=== PATIENT | female | born 1950 | race Caucasian/White ===

== ENCOUNTER → 2017-12-11 | Emergency (ER) | payer OTHER ==
[~2017-12-11] VITALS: Ht 160 cm; Wt 88.9 kg
[~2017-12-11] MED LIST: CEFADROXIL500 MG PO; CIPRO500 MG PO; COZAAR25 MG; FLAGYL500MG PO; INTESTINEX680 M1 PO; JANUMET 50-501 UDTAB; NABUMETONE750 MG PO; NORVASC5 MG; SYNTHROID137 MCG; TOPROL XL200 MG; ULTRAM50 MG PO
== END | disposition home or self-care (01) ==
LOC: ER 12:34
DX: L05.01 Pilonidal cyst with abscess (principal)

== ENCOUNTER 2018-01-03 19:16 | Emergency (ER) | payer OTHER ==
[~2018-01-03] VITALS: Ht 160 cm; Wt 89.4 kg
[2018-01-03] MEDS ORDERED: JANUMET 50-5001 EACH (19:41)
[2018-01-03] MEDS ORDERED: CYMBALTA60 MG (19:42)
[2018-01-03] MEDS ORDERED: CLONAZEPAM2 M1 (19:43)
== END 2018-01-04 00:41 | disposition home or self-care (01) ==
LOC: ER 19:16
DX: J02.9 Acute pharyngitis, unspecified (principal); J11.1 Influenza due to unidentified influenza virus with other respiratory manifestations

== ENCOUNTER 2023-09-29 22:35 | Emergency (ER) | payer OTHER ==
[~2023-09-29] VITALS: Ht 160 cm; Wt 79.4 kg
[~2023-09-29 22:35] MED LIST changes: +CLONAZEPAM2 M1; +CYMBALTA60 MG; +JANUMET 50-5001 EACH
[2023-09-29] MEDS ORDERED: GLIMEPIRIDE2 MG (22:58)
== END 2023-09-30 02:02 | disposition left against medical advice (07) ==
LOC: ER 22:36
DX: Z53.21 Procedure and treatment not carried out due to patient leaving prior to being seen by health care provider (principal)